=== PATIENT | female | born 1955 | race Two or more races ===

== ENCOUNTER 2024-12-15 17:56 | Inpatient (IN) | payer MEDICARE, OTHER ==
[~2024-12-15] VITALS: Ht 165.1 cm; Wt 72.6 kg
[2024-12-15] MEDS: IV NS 1000 ML 1,000 ML IV ONE (18:10)
[2024-12-15] MEDS ORDERED: ACETAMINOPHEN 500 MG TABLET ONE ×2 (18:15→21:07)
[2024-12-15] MEDS: ACETAMINOPHEN 500 MG TABLET PO ONE ×2 (18:19→21:12)
[2024-12-15] MEDS ORDERED: SIMV20TA2 PO (18:21)
[2024-12-15 18:54] LABS: BASOPHILS % (AUTO) 0.3 % (0.0-2.0); EOSINOPHILS % (AUTO) 0.2 % (0.0-7.0); HEMATOCRIT 40.2 % (31.2-41.9); HEMOGLOBIN 13.5 g/dL (10.9-14.3); LYMPHOCYTES # (AUTO) 0.6 K/uL (0.8-4.8); LYMPHOCYTES % (AUTO) 7.5 % (20.5-51.5); MEAN CORPUSCULAR HEMOGLOBIN 31.1 uug (24.7-32.8); MEAN CORPUSCULAR HGB CONC 34 g/dL (32.3-35.6); MEAN CORPUSCULAR VOLUME 92.8 fL (75.5-95.3); MONOCYTES # (AUTO) 0.9 K/uL (0.1-1.30); MONOCYTES % (AUTO) 10.7 % (0.0-11.0); NEUTROPHILS # (AUTO) 6.8 K/uL (1.8-8.9); NEUTROPHILS % (AUTO) 81.3 % (38.5-71.5); PLATELET COUNT (AUTO) 208 K/uL (179-408); RED BLOOD CELL COUNT(AUTO) 4.33 MIL/uL (3.63-4.92); RED CELL DISTRIBUTION WIDTH 13.1 % (12.3-17.7); WHITE BLOOD COUNT (AUTO) 8.3 K/uL (3.8-11.8)
[2024-12-15 18:57] LABS: DIFFERENTIAL COMMENT 1
[2024-12-15 19:05] LABS: CALCIUM 8.4 mg/dL (8.5-10.1); CREATININE 0.8 mg/dL (0.6-1.3)
[2024-12-15 19:11] LABS: ALBUMIN 3.4 g/dL (3.4-5.0); BILIRUBIN,DIRECT 0.1 mg/dL (0.0-0.2); BILIRUBIN,TOTAL 0.4 mg/dL (0.2-1.0); TOTAL PROTEIN, SERUM 6.8 g/dL (6.4-8.2)
[2024-12-15] MEDS ORDERED: ASPIRIN 81 MG TAB.CHEW ONE (19:22)
[2024-12-15] MEDS ORDERED: MORPHINE SULFATE 4 MG/1 ML DISP.SYRIN ONE (19:22)
[2024-12-15] MEDS ORDERED: ONDANSETRON 4 MG/2 ML VIAL ONE (19:22)
[2024-12-15] MEDS: MORPHINE SULFATE 4 MG/1 ML DISP.SYRIN IV ONE (19:31)
[2024-12-15] MEDS: ASPIRIN 81 MG TAB.CHEW PO ONE (19:31)
[2024-12-15] MEDS: ONDANSETRON 4 MG/2 ML VIAL IV ONE (19:31)
[2024-12-15] MEDS: IV NORMAL SALINE 500 ML BAG IV ONE (19:31)
[2024-12-15] MEDS: IV NORMAL SALINE 1000 ML BAG IV ONE ×2 (21:12→23:07)
[2024-12-15 22:25] LABS: *BILIRUBIN,URIN NEGATIVE (NEGATIVE); *BLOOD, URINE NEGATIVE (NEGATIVE); *CLARITY,URINE CLEAR (CLEAR); *COLOR,URINE YELLOW (YELLOW); *KETONES,URINE NEGATIVE (NEGATIVE); *PROTEIN,URINE NEGATIVE (NEGATIVE); *UROBILINOGEN,URINE 0.2 E.U./dl (NORMAL); LEUKOCYTE ESTERASE ,URINE NEGATIVE (NEGATIVE); NITRITE, URINE NEGATIVE (NEGATIVE); UGLUCOSE NEGATIVE (NEGATIVE)
[2024-12-15] MEDS ORDERED: OSELTAMIVIR PHOSPHATE 75 MG CAPSULE ONE (23:10)
[2024-12-15] MEDS: OSELTAMIVIR PHOSPHATE 75 MG CAPSULE PO ONE (23:11)
[2024-12-16] MEDS ORDERED: OSEL75CA PO (00:29)
[2024-12-16] MEDS: IV NORMAL SALINE 1000 ML BAG IV ONE (01:06)
[2024-12-16] MEDS ORDERED: MORPHINE SULFATE 4 MG/1 ML DISP.SYRIN IV PRN ×2 (02:00→05:00)
[2024-12-16] MEDS ORDERED: TEMAZEPAM 15 MG CAPSULE PO PRN (02:00)
[2024-12-16] MEDS ORDERED: MAGNESIUM HYDROXIDE 30 ML LIQUID UDC PO PRN (02:00)
[2024-12-16] MEDS ORDERED: HYDROCODONE/APAP 5-325MG TABLET PO PRN (02:00)
[2024-12-16] MEDS ORDERED: REMEDY ESSENTIAL ZINC PASTE 113 GM TP PRN (02:00)
[2024-12-16] MEDS ORDERED: ONDANSETRON 4 MG/2 ML VIAL IV PRN (02:00)
[2024-12-16] MEDS: IV NS 1000 ML 1,000 ML IV PRN (04:54)
[2024-12-16 05:07] VITALS: BP 122/72; TEMP 98.6; O2SAT 100
[2024-12-16] MEDS ORDERED: AZITHROMYCIN 500MG/ D5W 250ML IVPB **ER PYXIS ONLY IV ONE (05:24)
[2024-12-16] MEDS: AZITHROMYCIN IV 500 MG in IV DEXTROSE 5% 250 ML IV SCH (05:34)
[2024-12-16] MEDS: PANTOPRAZOLE SODIUM 40 MG TABLET.DR PO SCH (06:14)
[2024-12-16] MEDS: ACETAMINOPHEN 325 MG TABLET PO PRN (06:31)
[2024-12-16 08:07] VITALS: BP 96/65; TEMP 98.7; O2SAT 97
[2024-12-16] MEDS: OSELTAMIVIR PHOSPHATE 75 MG CAPSULE PO ONE (08:30)
[2024-12-16] MEDS ORDERED: OSELTAMIVIR PHOSPHATE 75 MG CAPSULE PO SCH (09:00)
[2024-12-16] MEDS ORDERED: MORPHINE SULFATE 2 MG/1 ML DISP.SYRIN IV PRN (13:15)
[2024-12-16 16:20] VITALS: O2SAT 98
[2024-12-16 16:24] VITALS: BP 93/48; TEMP 101.3; O2SAT 99
[2024-12-16] MEDS: SIMVASTATIN 20 MG TABLET PO SCH (17:50)
[2024-12-16 19:00] VITALS: BP 99/51; TEMP 98.2; O2SAT 96
[2024-12-16] MEDS: OSELTAMIVIR PHOSPHATE 75 MG CAPSULE PO SCH (20:28)
[2024-12-17 06:00] VITALS: BP 102/63; TEMP 99.5; O2SAT 97
[2024-12-17 07:01] LABS: EOSINOPHILS # (AUTO) 0.4 K/uL (0.0-0.7); EOSINOPHILS % (AUTO) 9.5 % (0.0-7.0); HEMATOCRIT 36.2 % (31.2-41.9); HEMOGLOBIN 12.3 g/dL (10.9-14.3); LYMPHOCYTES # (AUTO) 1.3 K/uL (0.8-4.8); MEAN CORPUSCULAR HEMOGLOBIN 31.4 uug (24.7-32.8); MEAN CORPUSCULAR HGB CONC 34 g/dL (32.3-35.6); MEAN CORPUSCULAR VOLUME 92.2 fL (75.5-95.3); MONOCYTES # (AUTO) 1.6 K/uL (0.1-1.30); MONOCYTES % (AUTO) 38.1 % (0.0-11.0); NEUTROPHILS # (AUTO) 0.9 K/uL (1.8-8.9); NEUTROPHILS % (AUTO) 21.4 % (38.5-71.5); PLATELET COUNT (AUTO) 187 K/uL (179-408); RED BLOOD CELL COUNT(AUTO) 3.92 MIL/uL (3.63-4.92); RED CELL DISTRIBUTION WIDTH 13.1 % (12.3-17.7); WHITE BLOOD COUNT (AUTO) 4.2 K/uL (3.8-11.8)
[2024-12-17 07:22] LABS: DIFFERENTIAL COMMENT 1
[2024-12-17 07:23] LABS: CALCIUM 8.3 mg/dL (8.5-10.1); CREATININE 0.7 mg/dL (0.6-1.3); POTASSIUM 3.6 mmol/L (3.5-5.1)
[2024-12-17 08:52] LABS: EOSINOPHILS % (MANUAL) 1 % (0-8); LYMPHOCYTES % (MANUAL) 32 % (20-40); MONOCYTES % (MANUAL) 20 % (2-10); NEUTROPHILS % (MANUAL) 47 % (42-75); PLATELET ESTIMATE ADEQUATE
[2024-12-17 09:01] VITALS: O2SAT 98
[2024-12-17 10:50] LABS: THYROID STIMULATING HORMONE 1.444 mIU/mL (0.358-3.740)
[2024-12-17 11:17] VITALS: BP 107/60; TEMP 99; O2SAT 94
[2024-12-17] MEDS ORDERED: SIMVASTATIN 20 MG TABLET PO SCH (21:00)
== END 2024-12-17 15:10 | disposition home or self-care (01) | DRG 193 ==
LOC: ER 17:56 → MEDSURG3 12-16 03:01
PROVIDERS: ADMIT Nurse Practitioner Acute Care
DX: J10.1 Influenza due to other identified influenza virus with other respiratory manifestations (principal); J96.01 Acute respiratory failure with hypoxia; E86.0 Dehydration; R91.1 Solitary pulmonary nodule; E78.5 Hyperlipidemia, unspecified
CPT/HCPCS: 36415; 71045; 83605; 83735; 84100; 84443; 84484; 85025; 85730; 87040; 87086; A4606; A4663; A9150; G0378; J0456; J2270; J2405; J7040; J7050